=== PATIENT | female | born 1980 | race Caucasian/White ===

== ENCOUNTER 2018-05-19 21:35 | Emergency (ER) | payer OTHER, MEDICAID, SELFPAY ==
[2018-05-19 21:51] VITALS: BMI 24.2
--- NOTE | 2018-05-19 22:28 | DI.RAD.S_ITS ---
PROCEDURE: XR FINGER RT MIN 2V INDICATIONS: painful, swollen finger, puncture wound, FB? distal tip to digit 2 TECHNIQUE: AP hand, 2 views of the 2nd finger(s) acquired. COMPARISON: None. FINDINGS: Bones: No fractures or dislocations. No suspicious bony lesions. Soft tissues: No suspicious soft tissue calcifications. IMPRESSION: No opaque soft tissue foreign body. Dictated by: Jeremy Fragoso M.D. on 05/20/2018 at 9:32 Approved by: Jeremy Fragoso M.D. on 05/20/2018 at 9:34
[2018-05-19 23:00] VITALS: BP 130/87; PULSE 76
[2018-05-19] MEDS: TET,DIPH,PERTUSS(ACELL),VAC/PF 0.5 ML SYRINGE IM (23:00)
[2018-05-19] MEDS: DOXYCYCLINE HYCLATE 100 MG TABLET PO (23:00)
--- NOTE | 2018-05-19 23:07 | ED.WOUNDLAC ---
HPI - Wound/Laceration General Chief Complaint: Wound/Laceration Stated Complaint: STATES INFECTION TO POINTER FINGER ON RIGHT HAND Time Seen by Provider: 05/19/18 21:41 Source: patient and family Mode of arrival: ambulatory Limitations: no limitations History of Present Illness HPI narrative: Otherwise healthy 38-year-old female presents to the emergency department with a chief complaint of pain and swelling of her right index finger. Her and her father were out catching prawn a few days ago and the volar surface of her right index finger was punctured by the spine on a prawn. She developed some pain and swelling of the right index finger over the course of the next day. Today she soaked it in warm water with Epsom salts and it seemed to improve a bit. She denies systemic symptoms such as fever or chills. Onset (ago): day(s) Extremity Location: Right: hand Place: home Patient tetanus UTD: Yes Context: accidental Associated symptoms: pain and unable to move injured part Related Data Previous Rx's Medication Instructions Recorded doxycycline hyclate 100 mg PO BID #20 tab 05/19/18 Allergies Allergy/AdvReac Type Severity Reaction Status Date / Time latex [LATEX] Allergy Mild RASH Unverified 02/19/18 12:43 Review of Systems Review of Systems All systems reviewed & are unremarkable except as noted in HPI and below Constitutional Denies chills, Denies fever(s), Denies lethargy and Denies weakness Eyes Denies change in vision, Denies eye discharge, Denies irritation and Denies loss of vision ENT Ears, Nose, Mouth, and Throat: Denies change in voice, Denies neck pain and Denies sore throat Cardiovascular Denies chest pain, Denies irregular heart rhythm, Denies lightheadedness, Denies palpitations, Denies dyspnea, Denies dyspnea on exertion and Denies orthopnea Respiratory Denies cough, Denies dyspnea, Denies dyspnea on exertion and Denies wheezing Gastrointestinal Gastrointestinal: Denies abdominal pain, Denies change in bowel habits, Denies diarrhea, Denies nausea and Denies vomiting Genitourinary Denies hematuria, Denies flank pain, Denies urinary incontinence and Denies urinary urgency Musculoskeletal Reports joint swelling, Reports limited range of motion, Denies neck pain and Reports radiating pain into limb Integumentary/Breasts Denies pruritus, Denies erythema, Denies rash and Denies wounds Neurologic Denies confusion, Denies loss of vision and Denies weakness Psychiatric Denies anxiety, Denies confusion, Denies depression, Denies homicidal ideation and Denies suicidal ideation Endocrine Denies palpitations Hematologic/Lymphatic Denies easy bruising Allergic/Immunologic Denies wheezing PFSH Surgical History History of breast augmentation Family History Brother Neuroblastoma, unspecified laterality Father Age: 61 Sleep apnea, unspecified type Mother Age: 60 Diabetes mellitus Grandfather Diabetes mellitus Essential hypertension Exam Narrative Exam Narrative: Pleasant 38-year-old female in no obvious or significant distress Initial Vital Signs Initial Vital Signs: Vital Signs Pulse Rate 76 05/19/18 23:00 Blood Pressure 130/87 H 05/19/18 23:00 Const General: cooperative, well developed and No in distress Nutritional Appearance: average body habitus Orientation: alert, awake and oriented x3 HENMT Head: normal to inspection Nose: external nose normal Eyes General: appearance normal, both eyes and all related structures Eyelids: eyelids normal Conjunctivae: conjunctivae normal Sclera: sclerae normal Pupils: PERRL EOM: EOM intact bilaterally Resp Effort & Inspection: normal respiratory effort, able to speak in complete sentences, no respiratory distress and no use of accessory muscles Auscultation: clear to auscultation bilaterally, no rales, no rhonchi and no wheezes GI Inspection: non-distended Palpation: soft, no hepatosplenomegaly, No guarding, No pulsatile mass and No tender Auscultation: normal bowel sounds Extrem Right upper extremity: hand (Small puncture volar surface of right index finger with no palpable foreign body. No signs of flexor tenosynovitis such as significant swelling, finger stuck in flexion, pain with passive extension.) Course Orders Ordered: ED Orders 05/19/18 22:28 XR finger RT min 2V Stat Discontinued Medications Diphtheria/Tetanus/Acell Pertussis (Adacel) 0.5 ml IM .ONCE ONE Stop: 05/19/18 22:55 Last Admin: 05/19/18 23:00 Dose: 0.5 ml Doxycycline Hyclate (Vibramycin) 100 mg PO NOW ONE Stop: 05/19/18 22:30 Last Admin: 05/19/18 23:00 Dose: 100 mg Vital Signs - 8 hr 05/19/18 23:00 Pulse Rate 76 Blood Pressure [Right Arm] 130/87 H MDM - Wound/Laceration Differential Diagnosis Differential diagnosis: Likely laceration, abscess, abrasion and other (Flexor tenosynovitis) Medical Records Attestation: I reviewed the patient's medical records. Imaging Data Finger X-ray: Attestation: I personally reviewed and interpreted this imaging study as follows: My impression: No FB MDM Narrative Medical decision making narrative: Pain and swelling to index finger in absence of Kanavel's signs of flexor tenosynovitis, no FB on xray. Will treat for finger cellulitis, no abscess suspected. Doxycycline for staph, strep, MRSA, and vibrio coverage. Close follow up. Extensive discussion given regarding signs of concern such as increased swelling, pain, drainage, decreased ROM or systemic findings. Patient verbalized understanding Discharge Plan Departure Patient Disposition: Home, Self-Care Clinical Impression: Cellulitis of finger Instructions: DI for Cellulitis -- Adult Activity Restrictions/Additional Instructions: *You have been diagnosed with [ cellulitis of right index finger ] *What to do: *Take medications as directed *Follow up with your primary care provider in 2-3 days *Return to ER if you should have any new, worsening or concerning symptoms such as increased swelling of your index finger, increasing pain, and inability to straighten it or make a fist, Prescriptions: New doxycycline hyclate 100 mg tablet 100 mg PO BID Qty: 20 RF: 0 Referrals: Rudolph Guallpa MD [Primary Care Provider] -
== END 2018-05-19 23:10 | disposition home or self-care (01) ==
PROVIDERS: Emergency Provider Emergency Medicine; Family Provider Family Medicine; PCP Family Medicine
DX: L03.011 Cellulitis of right finger (principal); W26.8XXA Contact with other sharp object(s), not elsewhere classified, initial encounter
CPT/HCPCS: 73140; 90471; 99283; 90715

== ENCOUNTER 2018-06-08 10:06 | Emergency (ER) | payer OTHER, MEDICAID, SELFPAY ==
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
[2018-06-08 10:18] VITALS: BP 125/93; PULSE 82; RESP 18; TEMP 36.7; O2SAT 97
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
== END 2018-06-08 11:07 | disposition home or self-care (01) ==
PROVIDERS: Emergency Provider Emergency Medicine; Family Provider Family Medicine; PCP Family Medicine
DX: S92.502A Displaced unspecified fracture of left lesser toe(s), initial encounter for closed fracture (principal); W22.8XXA Striking against or struck by other objects, initial encounter
CPT/HCPCS: 73660; 99282; 99283

== ENCOUNTER → 2018-06-19 09:19 | Outpatient (CLI) | payer OTHER, MEDICAID, SELFPAY ==
--- NOTE | 2018-06-19 09:23 | DI.RAD.S_ITS ---
PROCEDURE: XR TOE LT MIN 2V INDICATIONS: F/u fx of toe on left foot TECHNIQUE: 3 views of the left toe(s) acquired. COMPARISON: [facility], CR, XR TOE LT MIN 2V, 06/08/2018, 9:56. FINDINGS: Bones: Spiral fracture midshaft of the fourth proximal phalanx is again noted, mild dorsal angulation, lateral displacement of the distal fracture fragment and mild overriding deformity unchanged. No callus formation seen. Soft tissues: No suspicious soft tissue densities. IMPRESSION: Stable fracture fourth proximal phalanx Dictated by: Jp Zapata M.D. on 06/19/2018 at 9:59 Approved by: Jp Zapata M.D. on 06/19/2018 at 10:01
== END ==
PROVIDERS: Family Provider Family Medicine; PCP Family Medicine; Visit Provider Family Medicine
DX: S92.512D Displaced fracture of proximal phalanx of left lesser toe(s), subsequent encounter for fracture with routine healing (principal)
CPT/HCPCS: 73660

== ENCOUNTER 2018-09-09 07:50 | Emergency (ER) | payer OTHER, MEDICAID, SELFPAY ==
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
[2018-09-09 08:19] VITALS: BP 152/100; PULSE 90; RESP 13; TEMP 36.6; O2SAT 97
[2018-09-09] MEDS: HYDROCODONE/ACET 5/325 TABLET 1 TAB PO (09:22)
[2018-09-09 10:00] VITALS: BP 151/110; PULSE 39; RESP 15; O2SAT 98
== END 2018-09-09 10:19 | disposition home or self-care (01) ==
PROVIDERS: Emergency Provider Emergency Medicine; PCP Family Medicine
DX: S43.004A Unspecified dislocation of right shoulder joint, initial encounter (principal); V86.55XA Driver of 3- or 4- wheeled all-terrain vehicle (ATV) injured in nontraffic accident, initial encounter
CPT/HCPCS: 73030; 99282; 99283

== ENCOUNTER 2019-01-25 08:20 | Emergency (ER) | payer OTHER, MEDICAID, SELFPAY ==
[2019-01-25 08:25] VITALS: BP 141/101; PULSE 96; RESP 17; TEMP 36.6; O2SAT 99
--- NOTE | 2019-01-25 09:25 | ED_ITS ---
HPI - Extremity Problem General Chief complaint: Extremity Problem,Nontraumatic Stated complaint: Rt elbow swollen and red Time Seen by Provider: 01/25/19 08:29 Source: patient Mode of arrival: ambulatory Limitations: no limitations History of Present Illness HPI Narrative: Patient presents the emergency department complaining of a red swollen right elbow since last night. She states she has had a feeling of fever and chills also. Patient states she initially noticed that the elbow was enlarged and swollen last night, this morning, noticed erythema. She states she can move the elbow but that it hurts to straighten it all the way. It also hurts to flex maximally. Patient denies any injury to the elbow. She denies any previous elbow issues. No other complaints at this time. Related Data Previous Rx's Medication Instructions Recorded hydrocodone-acetaminophen 1 tab PO Q4-6H PRN #10 tab 01/25/19 sulfamethoxazole-trimethoprim 1 tab PO BID #14 tab 01/25/19 [Bactrim DS] Allergies Allergy/AdvReac Type Severity Reaction Status Date / Time latex [LATEX] Allergy Mild RASH Unverified 12/09/18 10:43 Review of Systems Constitutional Denies chills, Denies fever(s), Denies lethargy and Denies weakness Eyes Denies change in vision, Denies eye discharge, Denies irritation and Denies loss of vision ENT Ears, Nose, Mouth, and Throat: Denies change in voice, Denies neck pain and Denies sore throat Cardiovascular Denies chest pain, Denies irregular heart rhythm, Denies lightheadedness, Denies palpitations, Denies dyspnea, Denies dyspnea on exertion and Denies orthopnea Respiratory Denies cough, Denies dyspnea, Denies dyspnea on exertion and Denies wheezing Gastrointestinal Gastrointestinal: Denies abdominal pain, Denies change in bowel habits, Denies diarrhea, Denies nausea and Denies vomiting Genitourinary Denies hematuria, Denies flank pain, Denies urinary incontinence and Denies urinary urgency Musculoskeletal Denies neck pain Comments: Swelling of right olecranon bursa Integumentary/Breasts Denies pruritus, Reports erythema, Denies rash and Denies wounds Neurologic Denies confusion, Denies loss of vision and Denies weakness Psychiatric Denies anxiety, Denies confusion, Denies depression, Denies homicidal ideation and Denies suicidal ideation Endocrine Denies palpitations Hematologic/Lymphatic Denies easy bruising Allergic/Immunologic Denies wheezing [facility] Medical History Healthy adult (Acute) Surgical History History of breast augmentation Family History Brother Neuroblastoma, unspecified laterality Father Age: 62 Sleep apnea, unspecified type Mother Age: 61 Diabetes mellitus Grandfather Diabetes mellitus Essential hypertension Social History marital status: Smoking Status: Never smoker alcohol intake: current substance use type: marijuana Family History Brother Neuroblastoma, unspecified laterality Father Age: 62 Sleep apnea, unspecified type Mother Age: 61 Diabetes mellitus Grandfather Diabetes mellitus Essential hypertension Social History marital status: Smoking Status: Never smoker alcohol intake: current substance use type: marijuana Exam Initial Vital Signs Initial Vital Signs: Vital Signs Temperature 97.8 F 01/25/19 08:25 Pulse Rate 96 H 01/25/19 08:25 Respiratory Rate 17 01/25/19 08:25 Blood Pressure 141/101 H 01/25/19 08:25 Pulse Oximetry 99 01/25/19 08:25 Const General: cooperative and well developed Nutritional Appearance: well nourished Orientation: alert, awake, oriented x3 and not confused [facility] Head: normocephalic and atraumatic Ears: external ears normal Nose: external nose normal and No nasal discharge Face and sinus: face symmetric and No dry mucous membranes Mouth: oral mucosae normal and moist mucous membranes Teeth and gingiva: dentition normal Eyes General: appearance normal, both eyes and all related structures Eyelids: eyelids normal Conjunctivae: conjunctivae normal Sclera: sclerae normal Pupils: PERRL EOM: EOM intact bilaterally Neck Neck: normal visual inspection, trachea midline, No lymphadenopathy, No midline deformity and No JVD Lymphatic: No lymphedema Chest Chest: normal inspection of the chest Resp Effort & Inspection: normal respiratory effort, able to speak in complete sentences, no respiratory distress and no use of accessory muscles Auscultation: clear to auscultation bilaterally Cardio Rate: regular rate Rhythm: regular rhythm Pulses: normal peripheral pulses Back/Spine/Pelvis Back: No CVA tenderness Cervical Spine: cervical ROM normal and No pain with cervical ROM Thoracic/Lumbar Spine: thoracic and lumbar spine normal to inspection Skin General: no rashes or lesions noted, No jaundice and No petechiae Other: Patient has a 4 cm diameter area of moderate erythema over her right olecranon area. There is fluctuance of the olecranon bursa. No wound or drainage. Neuro General: alert, oriented x3, gait normal and no focal motor deficits Speech: speech normal Extrem Other: Patient has nearly full range of motion of her right elbow, though this is mildly limited by pain and swelling at the olecranon. Her olecranon bursa is enlarged and fluctuant, and tender, though not exquisitely tender. Psych Appearance: well kempt Mental Status: mental status grossly normal Attitude: cooperative Thought Content: normal and suicidality Judgment: judgment good Procedures Abscess I/D Site: upper extremity Side (if applicable): right Local Anesthetic: lidocaine 2% Amount of anesthesia used (mL): 3 Technique: incised with #11 blade Amount of fluid expressed (mL): 2 Irrigation: Yes Packing used?: iodoform Course Course Narrative: I did not find evidence of a septic joint. I did discuss with the patient that it is possible that she has infection within the bursa itself, though it is difficult to tell without I and D. The patient may also have an olecranon bursitis that is noninfected, with an overlying cellulitis. We discussed the options and ultimately, the patient opted to have the bursa I and D in the emergency department. This was done, and no purulent drainage was noted. Patient is found have a small amount of clear fluid that drained from the wound. She was given a dose of Bactrim in the emergency department, as well as a dose of Vicodin. We have discussed home wound care, as well as the usual indications for return. Orders Ordered: Discontinued Medications Hydrocodone Bitart/Acetaminophen ([place] 10/325) 1 tab PO NOW ONE Stop: 01/25/19 09:19 Trimethoprim/Sulfamethoxazole (Bactrim Ds) 1 tab PO NOW ONE Stop: 01/25/19 09:19 Vital Signs - 8 hr 01/25/19 08:25 Temperature 97.8 F Pulse Rate 96 H Respiratory Rate 17 Blood Pressure 141/101 H Pulse Oximetry 99 MDM - Extremity (Nontraumatic) Medical Records Attestation: I reviewed the patient's medical records. Discharge Plan Departure Patient Disposition: Home Clinical Impression: Cellulitis of right elbow Bursitis, olecranon Qualifiers: Laterality: right Qualified Code(s): M70.21 - Olecranon bursitis, right elbow Discharge Date/Time: 01/25/19 09:50 Interventions: ED Discharge Assessment Last Done: 01/25/19 09:50 Instructions: DI for Cellulitis -- Adult, DI for Incision and Drainage of a Skin Abscess Prescriptions: New hydrocodone-acetaminophen 5-325 mg tablet 1 tab PO Q4-6H PRN (Reason: pain) Qty: 10 RF: 0 sulfamethoxazole-trimethoprim [Bactrim DS] 800-160 mg tablet 1 tab PO BID Qty: 14 RF: 0 Referrals: Rudolph Guallpa MD [Primary Care Provider] -
--- NOTE | 2019-01-25 10:19 | PC.NURSE ---
wound dressed with bacitracin, 2 - 4x4s and coban
== END 2019-01-25 09:50 | disposition home or self-care (01) ==
PROVIDERS: Emergency Provider Emergency Medicine; PCP Family Medicine
DX: L03.113 Cellulitis of right upper limb (principal); M70.20 Olecranon bursitis, unspecified elbow
CPT/HCPCS: 10060; 99282

== ENCOUNTER 2019-11-07 04:22 | Emergency (ER) | payer OTHER, MEDICAID, SELFPAY ==
[2019-11-07 04:25] VITALS: BP 140/99; PULSE 81; RESP 17; TEMP 36.6
--- NOTE | 2019-11-07 04:37 | ED.FEMALEGU ---
HPI - Female Genitourinary General Stated complaint: peeing blood 2 days Time Seen by Provider: 11/07/19 04:24 Source: patient Mode of arrival: Ambulatory Limitations: no limitations History of Present Illness HPI Narrative: 39-year-old female nonsmoker with noncontributory medical history presents with other family members in the chief complaint of 2 days of dysuria, frequency and urgency with a small amount of blood on the toilet paper when she wipes. She has had urinary tract infections in the past and states this feels the same. She denies systemic findings such as fever, chills nor nausea, vomiting or back pain. MD Complaint: dysuria and UTI Onset (ago): day(s) Location: suprapubic Severity: moderate Quality: Aching and Burning Duration: constant Exacerbating factors: urination Urinary symptoms: Dysuria, Frequency, Hematuria and Urgency Patient : No Related Data Previous Rx's Medication Instructions Recorded hydrocodone-acetaminophen 1 tab PO Q4-6H PRN #10 tab 01/25/19 sulfamethoxazole-trimethoprim 1 tab PO BID #14 tab 01/25/19 [Bactrim DS] cephalexin [Keflex] 500 mg PO QID 7 Days #28 cap 11/07/19 Allergies Allergy/AdvReac Type Severity Reaction Status Date / Time latex [LATEX] Allergy Mild RASH Unverified 12/09/18 10:43 Review of Systems Constitutional Constitutional: Denies chills, Denies fatigue, Denies fever(s), Denies frequent falls, Denies lethargy and Denies weakness Eyes Eyes: Denies change in vision, Denies eye discharge, Denies irritation and Denies loss of vision ENT Ears, Nose, Mouth, and Throat: Denies change in voice, Denies dizziness, Denies neck pain, Denies sore throat and Denies throat swelling Cardiovascular Cardiovascular: Denies chest pain, Denies irregular heart rhythm, Denies lightheadedness, Denies palpitations, Denies dyspnea, Denies dyspnea on exertion and Denies orthopnea Respiratory Respiratory: Denies cough, Denies dyspnea, Denies dyspnea on exertion and Denies wheezing Gastrointestinal Gastrointestinal: Denies abdominal pain, Denies change in bowel habits, Denies diarrhea, Denies nausea and Denies vomiting Genitourinary Genitourinary: Reports hematuria, Reports urinary frequency, Denies flank pain, Denies urinary incontinence and Reports urinary urgency Musculoskeletal Musculoskeletal: Denies back pain, Denies muscle weakness, Denies neck pain, Denies numbness and Denies tingling Integumentary/Breasts Skin/Breast: Denies pruritus, Denies erythema, Denies rash and Denies wounds Neurologic Neurologic: Denies behavioral changes, Denies confusion, Denies dizziness, Denies frequent falls, Denies loss of vision, Denies numbness, Denies tingling and Denies weakness Psychiatric Psychiatric: Denies anxiety, Denies behavioral changes, Denies confusion, Denies depression, Denies homicidal ideation and Denies suicidal ideation Endocrine Endocrine: Denies fatigue, Denies flushing and Denies palpitations Hematologic/Lymphatic Hematologic/Lymphatic: Denies easy bruising Allergic/Immunologic Allergic/Immunologic: Denies urticaria, Denies throat swelling and Denies wheezing Patient History Medical History Healthy adult (Acute) Surgical History History of breast augmentation Family History Brother Neuroblastoma, unspecified laterality Father Age: 62 Sleep apnea, unspecified type Mother Age: 61 Diabetes mellitus Grandfather Diabetes mellitus Essential hypertension alcohol intake frequency: 0-2 drinks per day Substance Use Type: marijuana Exam Narrative Exam Narrative: GEN: AOx3 and in mild distress EYES: Pupils are equal, round, and reactive to light and accommodation. Extraoccular muscles are intact bilaterally. There is no subconjunctival hemorrhage or exudate. CHEST: Lungs are clear to auscultation bilaterally and free of wheezes, rales, or rhonchi. Heart rate is regular rhythm, there are no murmurs, clicks, rubs, or gallops. There is no chest wall tenderness. ABD: Abdomen is soft and tender in the suprapubic region. There is no guarding or rebound. Bowel sounds are normal in all 4 quadrants. There is no mass or organomegaly. EXT: Full painless ROM of all extremities with no loss of sensation or strength. SKIN: Warm, pink, and dry. No erythema or rash Initial Vital Signs Initial Vital Signs: Vital Signs Temperature 97.8 F 11/07/19 04:25 Pulse Rate 81 11/07/19 04:25 Respiratory Rate 17 11/07/19 04:25 Blood Pressure 140/99 H 11/07/19 04:25 Course Orders Ordered: ED Orders 11/07/19 01:06 Test Urine Stat 11/07/19 04:45 Urinalysis and Microscopic Stat Discontinued Medications Cefazolin Sodium (Keflex 250 Mg Prepack) 1 bottle MISC SEEINSTR ONE Stop: 11/07/19 04:41 Vital Signs Vital signs: Vital Signs - 8 hr 11/07/19 04:25 Temperature 97.8 F Pulse Rate 81 Respiratory Rate 17 Blood Pressure [Left Arm] 140/99 H Discharge Plan Departure Patient Disposition: Home Clinical Impression: UTI (urinary tract infection) Qualifiers: Urinary tract infection type: acute cystitis Hematuria presence: with hematuria Qualified Code(s): N30.01 - Acute cystitis with hematuria Instructions: DI for Urinary Tract Infection (UTI) Activity Restrictions/Additional Instructions: *You have been diagnosed with [acute urinary tract infection with hematuria] *What to do: *Take medications as directed: *Follow up with your primary care provider in 2-3 days, call for an appointment. Let them know you were seen in the Emergency Department and that we ask that you be seen in follow up *Return to ER if you should have any new, worsening or concerning symptoms, such as fever, shaking chills, nausea, vomiting or diarrhea Prescriptions: New cephalexin [Keflex] 500 mg capsule 500 mg PO QID 7 Days Qty: 28 RF: 0 No Action hydrocodone-acetaminophen 5-325 mg tablet 1 tab PO Q4-6H PRN (Reason: pain) Qty: 10 RF: 0 sulfamethoxazole-trimethoprim [Bactrim DS] 800-160 mg tablet 1 tab PO BID Qty: 14 RF: 0 Referrals: Rudolph Guallpa MD [Primary Care Provider] -
[2019-11-07 04:45] VITALS: BP 140/99; PULSE 81; RESP 17; TEMP 36.6; BMI 25.0
[2019-11-07 04:46] LABS: Pregnancy Test Urine Negative (Negative)
[2019-11-07 04:54] LABS: Bacteria Urine None Seen
[2019-11-07] MEDS: cephALEXin 250 MG PREPACK 1 BOTTLE MISC (04:54)
[2019-11-07 04:55] LABS: Appearance Urine UA CLEAR; Bilirubin Urine UA NEGATIVE (NEGATIVE); Color Urine UA YELLOW; Glucose Urine UA NEGATIVE (Negative); Ketones Urine UA NEGATIVE (NEGATIVE); Leukocyte Esterase Urine UA 2+ (NEGATIVE); Nitrite Urine UA NEGATIVE (Negative); Occult Blood Urine UA 3+ (Negative); Protein Urine UA NEGATIVE (Negative); Specific Gravity Urine UA <=1.005 (1.000-1.035); Urobilinogen Urine UA 0.2 E.U./dL (0.2)
[2019-11-07 05:15] LABS: Culture Indicated Urine Specimen Cultured; RBC Urine 1-5/HPF (0-5/HPF); Squamous Epithelial Cell Urine 1-5 /HPF (0-5/HPF); WBC Urine 10-30/HPF (0-5/HPF)
== END 2019-11-07 05:02 | disposition home or self-care (01) ==
PROVIDERS: Emergency Provider Emergency Medicine; PCP Family Medicine
DX: N30.01 Acute cystitis with hematuria (principal)
CPT/HCPCS: 81001; 81025; 87077; 87086; 87186; 99282

== ENCOUNTER 2022-02-05 10:01 | Emergency (ER) | payer OTHER, MEDICAID, SELFPAY ==
--- NOTE | 2022-02-05 10:04 | DI.RAD.S_ITS ---
PROCEDURE: XR FINGER LT MIN 2V INDICATIONS: finger injury TECHNIQUE: AP hand, 2 views of the 4th finger(s) acquired. COMPARISON: None. FINDINGS: Bones: No fractures or dislocations. No suspicious bony lesions. Soft tissues: No suspicious soft tissue calcifications. IMPRESSION: No acute osseous abnormality. Consider follow-up radiographs in 10-14 days. Dictated by: John Best M.D. on 02/05/2022 at 11:04 Approved by: John Best M.D. on 02/05/2022 at 11:05
[2022-02-05 10:08] VITALS: BP 154/94; PULSE 87; RESP 18; TEMP 36.4; O2SAT 97; BMI 33.3
--- NOTE | 2022-02-05 10:42 | ED.GENADULT ---
HPI - General Adult General Chief complaint: Extremity Injury, Upper Stated complaint: Possible broken ring finger Time Seen by Provider: 02/05/22 10:04 Source: patient Mode of arrival: Ambulatory History of Present Illness HPI narrative: Patient is a 42-year-old female here for evaluation of a left ring finger injury. She is unsure exactly how it happened however she stated that she did get drunk last night. She woke up overnight and this morning with pain in the finger. She describes the pain over the 1st joint of her finger. No other injuries. She did have a aluminum splint at home that she placed over the area which does seem to help the discomfort. Related Data Previous Rx's Medication Instructions Recorded hydrocodone 5 mg-acetaminophen 325 1 tab PO Q4-6H PRN #10 tab 01/25/19 mg tablet albuterol sulfate 2.5 mg (3 mL) INHALATION QID #75 ml 01/19/20 albuterol sulfate 90 mcg/actuation 2 puff INHALATION Q6H PRN #8.5 gram 01/19/20 aerosol inhaler nitroglycerin 2 % transdermal 1 inch TRANSDERMAL TID #30 g 08/01/21 ointment (Nitro-Bid) polyethylene glycol 3350 17 17 g PO BID #510 g 08/01/21 gram/dose oral powder Allergies Allergy/AdvReac Type Severity Reaction Status Date / Time latex [LATEX] Allergy Mild RASH Verified 02/05/22 10:11 Review of Systems Musculoskeletal Musculoskeletal: Reports system reviewed and no additional complaints, except as documented and Reports as per HPI Integumentary/Breasts Skin/Breast: Reports system reviewed and no additional complaints, except as documented and Reports as per HPI Neurologic Neurologic: Reports system reviewed and no additional complaints, except as documented and Reports as per HPI Hematologic/Lymphatic On Anticoagulants: No Patient History Medical History (Updated 02/05/22 @ 10:46 by Charli Crook DO) Healthy adult Surgical History History of breast augmentation Family History Brother Neuroblastoma, unspecified laterality Father Age: 65 Sleep apnea, unspecified type Mother Age: 64 Diabetes mellitus Grandfather Diabetes mellitus Essential hypertension Social History marital status: Smoking Status: Never smoker alcohol intake: current substance use type: marijuana Smoking Status: Never smoker alcohol intake frequency: 0-2 drinks per day Substance Use Type: marijuana Exam Initial Vital Signs Initial Vital Signs: Vital Signs Temperature 97.5 F L 02/05/22 10:08 Pulse Rate 87 02/05/22 10:08 Respiratory Rate 18 02/05/22 10:08 Blood Pressure 154/94 H 02/05/22 10:08 Pulse Oximetry 97 02/05/22 10:08 Cardio Pulses: radial pulses present on the left Skin General: no rashes or lesions noted Neuro Sensory Exam: no sensory deficits noted Extrem Other: Left hand is unremarkable. The left ring finger MCP joint is unremarkable. Does have tenderness over the PIP joint and mild tenderness over the D IP joint of the left ring finger. No other left hand or finger injuries found. Procedures Orthopedic Splinting/Casting Injury #1: Side: left Upper Extremity Injury Location: finger Upper Extremity Immobilizer: aluminum form splint Post splinting neuro exam: intact Post splinting vascular exam: intact Placed by: Provider Course Orders Ordered: ED Orders 02/05/22 10:04 XR finger LT min 2V Stat Vital Signs Vital signs: Vital Signs - 8 hr 02/05/22 10:08 Temperature 97.5 F L Pulse Rate 87 Respiratory Rate 18 Blood Pressure 154/94 H Pulse Oximetry 97 Medical Decision Making Imaging Data Extremity x-ray #1: My Impression: Lucency along the distal aspect of the proximal phalanx. MDM Narrative Medical decision making narrative: My evaluation of the x-ray shows concern for lucency along the distal aspect of the proximal phalanx. Patient has an aluminum splint already in this was replaced. I did discuss this with her. Discussed care instructions and return precautions. She expressed understanding and agreement. Discharge Plan Departure Patient Disposition: Home Clinical Impression: Finger fracture, left Instructions: DI for Finger Fracture Activity Restrictions/Additional Instructions: The x-ray did has some concern about a finger fracture like we discussed. I recommend that you wear the splint like we discussed although you can take it off to shower. I suspect that her symptoms should be improving in the next couple weeks. Return to the emergency department for any new or worsening symptoms. Prescriptions: No Action albuterol sulfate 90 mcg/actuation HFA aerosol inhaler 2 puff INHALATION Q6H PRN (Reason: shortness of breath or wheezing) Qty: 8.5 1RF albuterol sulfate 2.5 mg /3 mL (0.083 %) solution for nebulization 2.5 mg INHALATION QID Qty: 75 0RF polyethylene glycol 3350 17 gram/dose powder 17 g PO BID Qty: 510 0RF Nitro-Bid 2 % ointment 1 inch transdermal TID Qty: 30 0RF Rx Instructions: apply small amount topically to rectal area tid hydrocodone-acetaminophen 5-325 mg tablet 1 tab PO Q4-6H PRN (Reason: pain) Qty: 10 0RF Referrals: Rudolph Guallpa MD [Primary Care Provider] -
[2022-02-05 11:41] VITALS: BP 155/102; PULSE 75; RESP 16; O2SAT 97
== END 2022-02-05 11:42 | disposition home or self-care (01) ==
PROVIDERS: Emergency Provider Emergency Medicine; PCP Family Medicine
DX: S62.635A Displaced fracture of distal phalanx of left ring finger, initial encounter for closed fracture (principal); X58.XXXA Exposure to other specified factors, initial encounter
CPT/HCPCS: 29130; 73140; 99281; 99283

== ENCOUNTER → 2022-07-19 08:51 | Outpatient (CLI) | payer OTHER, MEDICAID, SELFPAY ==
[2022-07-19 09:18] LABS: Add Manual Diff / Slide Review NO; Basophils Absolute Auto 0 /uL (0-100); Basophils Percent Auto 0.4 % (0-2); Eosinophils Absolute Auto 100 /uL (0-450); Eosinophils Percent Auto 0.8 % (2-4); Hematocrit 40.6 % (36-46); Hemoglobin 13.9 g/dL (12.0-16.0); Lymphocytes Absolute Auto 2200 /uL (1100-4500); Lymphocytes Percent Auto 28.1 % (25-40); Mean Corpuscular HGB Conc 34.1 % (30-36); Mean Corpuscular Hemoglobin 30.5 PG (26-34); Mean Corpuscular Volume 89.2 fL (80-100); Monocytes Absolute Auto 400 /uL (0-900); Monocytes Percent Auto 5.4 % (3-14); Neutrophils Absolute Auto 5100 /uL (1500-7000); Neutrophils Percent Auto 65.3 % (50-75); Platelet Count 200 X10^3/uL (150-400); Red Blood Cell Count 4.55 X10^6/uL (4.0-5.2); Red Cell Distribution Width 13.5 % (11.6-14.8); White Blood Cell Count 7.7 X10^3/uL (4.5-11.0)
[2022-07-19 10:42] LABS: HEMOLYSIS < 15 (0-50); Iron 101 ug/dL (37-170)
[2022-07-19 10:49] LABS: Alanine Aminotransferase 26 IU/L (<35); Albumin 4.5 g/dL (3.5-5.0); Albumin Globulin Ratio 1.7 (1.0-2.8); Alkaline Phosphatase 73 U/L (38-126); Aspartate Aminotransferase 22 IU/L (14-36); BUN Creatinine Ratio 17.7 (6-22); Bilirubin Total 0.5 mg/dL (0.2-1.3); Blood Urea Nitrogen 11 mg/dL (7-17); Calcium 9.2 mg/dL (8.4-10.2); Carbon Dioxide 29 mmol/L (22-32); Chloride 99 mmol/L (98-107); Cholesterol 247 mg/dL (140-199); Estimated Glomerular Filt Rate > 60 mL/min (>60); Globulin 2.7 g/dL (1.7-4.1); Glucose 91 mg/dL (70-100); HDL Cholesterol 53 mg/dL (40-60); HEMOLYSIS < 15 (0-50); LDL Cholesterol Calculated 133 mg/dL (<100); Potassium 4.3 mmol/L (3.4-5.1); Sodium 137 mmol/L (137-145); Total Protein 7.2 g/dL (6.3-8.2); Triglycerides 307 mg/dL (35-150)
[2022-07-19 10:55] LABS: Percent Iron Saturation 28 % (15-50); Total Iron Binding Capacity 362 ug/dL (265-497); Transferrin 275 mg/dL (206-381)
[2022-07-19 11:17] LABS: TSH w/ Reflex to FT4 0.81 uIU/mL (0.47-4.68)
[2022-07-19 11:19] LABS: Ferritin 14 ng/mL (6-137)
== END ==
PROVIDERS: PCP Family Medicine; Referring Provider Physician Assistant; Visit Provider Physician Assistant
DX: R53.83 Other fatigue (principal); Z86.2 Personal history of diseases of the blood and blood-forming organs and certain disorders involving the immune mechanism; Z13.220 Encounter for screening for lipoid disorders; Z13.6 Encounter for screening for cardiovascular disorders
CPT/HCPCS: 36415; 80053; 80061; 82728; 83540; 83550; 84443; 85025

== ENCOUNTER 2023-01-14 08:36 | Emergency (ER) | payer OTHER, MEDICAID, SELFPAY ==
[2023-01-14 08:49] VITALS: BP 142/93; PULSE 78; RESP 19; TEMP 37.2; O2SAT 98; BMI 30.7
--- NOTE | 2023-01-14 08:53 | DI.RAD.S_ITS ---
PROCEDURE: XR FOOT RT MIN 3V INDICATIONS: right foot pain TECHNIQUE: 3 views of the foot were acquired. COMPARISON: None. FINDINGS: Bones: No fractures or dislocations. No suspicious bony lesions. Soft tissues: No tibiotalar joint effusion. Achilles tendon appears normal. IMPRESSION: No visualized acute fracture or dislocation. However, if clinical concern and/or pain persist, short interval imaging followup in 7-10 days is recommended, as occult injury cannot be definitively excluded. Dictated by: Ileana Ruiz M.D. on 01/14/2023 at 9:19 Approved by: Ileana Ruiz M.D. on 01/14/2023 at 9:19
[2023-01-14 08:54] VITALS: PULSE 78
--- NOTE | 2023-01-14 10:02 | ED.LOWEXIN ---
HPI - Extremity Injury (Lower) General Chief Complaint: Extremity Injury, Lower Stated Complaint: thinks she broke RT foot Time Seen by Provider: 01/14/23 10:01 Source: patient Mode of arrival: Ambulatory Limitations: no limitations History of Present Illness HPI Narrative: This is a 43-year-old female who presents with concern for injury to her right foot. Patient states she is been having issues on the dorsal side of her right foot over the 4th 5th metatarsal region for some time. 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 Today she had jumped out bed accidentally jumped into a laundry basket that slid and caused her to invert her ankle and had pain at that area that was increased. She is able to ambulate on it. It is improved when she wears shoes that have more support and are not tight her foot. She states sometimes it feels little burning at the sensation. Was worse today so she was concerned she may have broken it. Patient denies any other injuries. Denies any other concerns. She is not taken anything for pain. Related Data Previous Rx's Medication Instructions Recorded albuterol sulfate 2.5 mg/3 mL 2.5 mg (3 mL) inhalation QID #75 mL 01/19/20 (0.083 %) solution for nebulization albuterol sulfate 90 mcg/actuation 2 puff inhalation Q6H PRN 01/19/20 aerosol inhaler shortness of breath or wheezing #8.5 grams Allergies Allergy/AdvReac Type Severity Reaction Status Date / Time latex [LATEX] Allergy Mild RASH Verified 02/05/22 10:11 Review of Systems Review of Systems ROS Unobtainable: All systems reviewed & are unremarkable except as noted in HPI and below Patient History Medical History Healthy adult Mixed hyperlipidemia Surgical History History of breast augmentation Family History Brother Neuroblastoma, unspecified laterality Father Age: 66 Sleep apnea, unspecified type Mother Age: 65 Diabetes mellitus Grandfather Diabetes mellitus Essential hypertension Social History marital status: Smoking Status: Never smoker alcohol intake: current substance use type: marijuana Smoking Status: Never smoker alcohol intake frequency: 0-2 drinks per day Substance Use Type: marijuana Exam Narrative Exam Narrative: GENERAL: Alert and oriented x three, well-appearing female in mild distress. HEENT: Head normocephalic, atraumatic, EOMI, pupils reactive, face symmetric, moist mucous membranes NECK: Supple, full range of motion EXTREMITIES: Normal range of motion, no clubbing or edema. Neurovascularly intact. No bony tenderness over the right foot, ankle. No joint laxity. Patient does not have any warmth, erythema, ecchymosis or skin changes. No masses or nodules appreciated. Patient has normal range of motion. She is nontender in the soft tissues as well. NEUROLOGICAL: Cranial nerves II through XII grossly intact. Moving all extremities SKIN: Warm, dry, no petechiae, no rashes or lesions. Initial Vital Signs Initial Vital Signs: Vital Signs Temperature 99 F 01/14/23 08:49 Pulse Rate 78 01/14/23 08:49 Respiratory Rate 19 01/14/23 08:49 Blood Pressure 142/93 H 01/14/23 08:49 Pulse Oximetry 98 01/14/23 08:49 Oxygen Delivery Method Room Air 01/14/23 08:49 Course Orders Ordered: ED Orders 01/14/23 08:53 XR foot RT min 3V Stat Vital Signs Vital signs: Vital Signs - 8 hr 01/14/23 08:49 01/14/23 08:54 Temperature 99 F Pulse Rate 78 Pulse Rate [Right Dorsalis Pedis] 78 Respiratory Rate 19 Blood Pressure 142/93 H Pulse Oximetry 98 Oxygen Delivery Method Room Air MDM - Extremity Injury (Lower) Imaging Data Extremity x-ray #1: Radiologist's Impression: Close Foot X-Ray (Signed) Ileana Ruiz - 01/14/23 Finger X-Ray (Signed) John Best - 02/05/22 Shoulder X-Ray (Signed) Luigi Murray - 09/09/18 Toe X-Ray (Signed) Jp Zapata - 06/19/18 Toe X-Ray (Signed) Daisy Vo - 06/08/18 Finger X-Ray (Signed) Derek Fragoso - 05/19/18 Launch?[address] [address] XRay Report Signed Patient: Lizeth Ortiz MR#: [id number] : 1980 Acct:[id number] Age/Sex: 43 / F Date of Service: 01/14/23 Loc: ED Accession Number: [id number] ?? Procedure: XR foot RT min 3V Ordering Provider: Lorene Lepe D.O. PROCEDURE:? XR FOOT RT MIN 3V ? INDICATIONS:? right foot pain ? TECHNIQUE:? 3 views of the foot were acquired.? ? COMPARISON:? None. ? FINDINGS:? ? Bones:? No fractures or dislocations.? No suspicious bony lesions.? ? Soft tissues:? No tibiotalar joint effusion.? Achilles tendon appears normal.? ? ? IMPRESSION:? No visualized acute fracture or dislocation. However, if clinical concern and/or pain persist, short interval imaging followup in 7-10 days is recommended, as occult injury cannot be definitively excluded. ? ? Dictated by: Ileana Ruiz M.D. on 01/14/2023 at 9:19 ? ? Approved by: Ileana Ruiz M.D. on 01/14/2023 at 9:19?? MDM Narrative Medical decision making narrative: Discussed with patient she is had longstanding pain this area that was worsened today after low energy mechanism injury. Patient suspect may have a tendon or ligament issue discussed supportive foot wear and follow-up. She and I also discussed potential causes signs and symptoms to watch for. X-ray imaging was obtained is negative today for any bony injury. Patient feels comfortable with this plan. Discharge Plan Departure Patient Disposition: Home Clinical Impression: Foot pain, right Instructions: DI for Foot Pain Activity Restrictions/Additional Instructions: Please follow-up in 7-10 days if your pain is persisting for repeat evaluation and possibly imaging if you are not having any improvement or your symptoms are worsening. I would try very hard soled shoe to see if this makes any difference there maybe less flexion and movement at that area. You may take Tylenol and/or ibuprofen as needed for pain Splint Care: Keep splint clean and dry. Elevated affected body part to decrease swelling. OK to use ice pack on the affected body part. Use for 15-20 minutes each time, for 5-6x per day. If you develop worsening pain, numbness, tingling, discoloration of the affected body part, loosen the splint by loosening the ALEXSANDRA wrap, and either see your doctor for an urgent re-assessment, or return to the Emergency Department. Return to the Emergency Department for any new or worsening symptoms. Prescriptions: No Action albuterol sulfate 90 mcg/actuation HFA aerosol inhaler 2 puff INHALATION Q6H PRN (Reason: shortness of breath or wheezing) Qty: 8.5 1RF albuterol sulfate 2.5 mg /3 mL (0.083 %) solution for nebulization 2.5 mg INHALATION QID Qty: 75 0RF Referrals: Rudolph Guallpa MD [Primary Care Provider] - Stand Alone Forms: Patient Portal/API
[2023-01-14 10:23] VITALS: BP 151/98; PULSE 75; RESP 17; O2SAT 97
== END 2023-01-14 10:24 | disposition home or self-care (01) ==
PROVIDERS: Emergency Provider Emergency Medicine; PCP Family Medicine
DX: M79.671 Pain in right foot (principal); X50.1XXA Overexertion from prolonged static or awkward postures, initial encounter
CPT/HCPCS: 73630; 99281; 99283

== ENCOUNTER → 2023-02-01 09:01 | Outpatient (CLI) | payer OTHER, MEDICAID, SELFPAY ==
[2023-02-01 11:03] LABS: BUN Creatinine Ratio 14.1 (6-22); Blood Urea Nitrogen 9 mg/dL (7-17); Calcium 9.6 mg/dL (8.4-10.2); Carbon Dioxide 29 mmol/L (22-32); Chloride 103 mmol/L (98-107); Cholesterol 291 mg/dL (140-199); Estimated Glomerular Filt Rate > 60 mL/min (>60); Glucose 89 mg/dL (70-100); HDL Cholesterol 49 mg/dL (40-60); HEMOLYSIS < 15 (0-50); LDL Cholesterol Calculated 209 mg/dL (<100); Sodium 139 mmol/L (137-145); Triglycerides 166 mg/dL (35-150)
[2023-02-01 11:04] LABS: Hemoglobin A1C% w Est Avg Glu 5.5 % (4.0-6.0)
[2023-02-01 13:36] LABS: Microalbumin Urine Random 1.7 mg/dL (0-1.6)
[2023-02-01 16:56] LABS: Creatinine Urine Random 376.8 mg/dL; Microalbumi Creatinin Ratio Ur 4.5 ug/mg CR (<30)
== END ==
PROVIDERS: PCP Family Medicine; Referring Provider Physician Assistant; Visit Provider Physician Assistant
DX: E78.2 Mixed hyperlipidemia (principal); I10 Essential (primary) hypertension; Z83.3 Family history of diabetes mellitus
CPT/HCPCS: 36415; 80048; 80061; 82043; 82570; 83036

== ENCOUNTER 2023-06-09 19:56 | Emergency (ER) | payer OTHER, MEDICAID, SELFPAY ==
[2023-06-09 20:00] VITALS: BP 156/104; PULSE 91; RESP 16; TEMP 36.9; O2SAT 98; BMI 26.6
[2023-06-09 20:46] LABS: Appearance Urine UA CLOUDY; Bilirubin Urine UA NEGATIVE (NEGATIVE); Color Urine UA RED; Glucose Urine UA NEGATIVE (Negative); Ketones Urine UA NEGATIVE (NEGATIVE); Leukocyte Esterase Urine UA TRACE (NEGATIVE); Nitrite Urine UA NEGATIVE (Negative); Occult Blood Urine UA 3+ (Negative); Protein Urine UA 2+ (Negative); Urobilinogen Urine UA 0.2 E.U./dL (0.2)
[2023-06-09 20:51] LABS: Bacteria Urine None Seen; Culture Indicated Urine Cult Not Indicated; RBC Urine 30-100/HPF (0-5/HPF); Squamous Epithelial Cell Urine 0-1 /HPF (0-5/HPF); WBC Urine 1-5/HPF (0-5/HPF)
== END 2023-06-09 22:47 | disposition left against medical advice (07) ==
PROVIDERS: Emergency Provider Emergency Medicine; PCP Family Medicine
DX: N39.0 Urinary tract infection, site not specified (principal)
CPT/HCPCS: 81001; 81025; 99281

== ENCOUNTER 2023-06-10 06:23 | Emergency (ER) | payer OTHER, MEDICAID, SELFPAY ==
[2023-06-10 06:41] VITALS: BP 154/96; PULSE 77; RESP 18; TEMP 36.2; O2SAT 100; BMI 26.6
--- NOTE | 2023-06-10 06:45 | ED.FEMALEGU ---
HPI - Female Genitourinary General Chief complaint: Urogenital-Female Stated complaint: blood in urine T-3 lower back hurts Time Seen by Provider: 06/10/23 06:32 Source: patient, RN notes reviewed and old records reviewed Mode of arrival: Ambulatory Limitations: no limitations History of Present Illness HPI Narrative: 43-year-old female with prior history of UTIs and pyelonephritis who presents with complaint of dysuria, urgency frequency hematuria she is had blood or urine states a little bit tachy your than typical. She does have little bit of bilateral flank pain. She denies fevers or chills. No nausea or vomiting. No chest pain or shortness of breath. She denies any diarrhea or constipation. No vaginal bleeding or discharge. She states but is just when she urinates. Patient states she is been on orally back sometimes for 3 days sometimes for 1 or 2 weeks. She denies any prior history resistance. Patient was here last night she left without being seen had a UA as well as which showed no but changes consistent with infection. Patient has not taken any azo. She denies any daily prescriptions. No prior surgeries. No known drug allergies. No tobacco, alcohol or illicit drugs. Patient follows through [facility]. Related Data Previous Rx's Medication Instructions Recorded sulfamethoxazole 800 1 tab PO BID #14 tabs 06/10/23 mg-trimethoprim 160 mg tablet (Bactrim DS) Allergies Allergy/AdvReac Type Severity Reaction Status Date / Time latex [LATEX] Allergy Mild RASH Verified 06/09/23 20:05 Review of Systems Review of Systems ROS Unobtainable: All systems reviewed & are unremarkable except as noted in HPI and below Patient History Medical History Essential hypertension Healthy adult Mixed hyperlipidemia Surgical History History of breast augmentation Family History Brother Neuroblastoma, unspecified laterality Father Age: 66 Sleep apnea, unspecified type Mother Age: 65 Diabetes mellitus Grandfather Diabetes mellitus Essential hypertension alcohol intake frequency: 0-2 drinks per day Substance Use Type: marijuana Exam Narrative Exam Narrative: GENERAL: Alert and oriented x three, well-appearing female in mild distress. HEENT: Head normocephalic, atraumatic, EOMI, pupils reactive, face symmetric, moist mucous membranes NECK: Supple, full range of motion CARDIOVASCULAR: Regular rate and rhythm without murmurs, rubs or gallops. RESPIRATORY: Breath sounds equal bilaterally, no wheezes rales or rhonchi. ABDOMEN: Soft, nontender. Normoactive bowel sounds all 4 quadrants. No guarding or rebound, rigidity, no mass : Mild b/l CVA tenderness EXTREMITIES: Normal range of motion, no clubbing or edema. Neurovascularly intact NEUROLOGICAL: Cranial nerves II through XII grossly intact. Moving all extremities SKIN: Warm, dry, no petechiae, no rashes or lesions. MDM - Female Genitourinary MDM Narrative Medical decision making narrative: A 43-year-old female nontoxic appearing with complaint of dysuria, urgency and frequency bilateral flank pain, she is been afebrile without any nausea or vomiting history of recurrent UTIs. Patient's urine shows hematuria, urine is negative. Symptoms seem consistent with UTI/pyelonephritis as she is had bilateral flank pain and not one-sided and patient was started on oral antibiotic. Patient was given a dose of Pyridium for bladder spasm. Patient had left CBC last night but had a UA that showed 2+ protein, 3+ occult blood, trace leukocyte esterase, 30-100 RBCs, 1-5 wbc's, no bacteria. Point of care at that time was negative. This was at 8:12 p.m. on 06/09/2023 so patient felt appropriate to not have to give a 2nd urine sample this morning less than 12 hours later. Discharge Plan Departure Patient Disposition: Home Clinical Impression: Pyelonephritis Instructions: DI for Kidney Infection Activity Restrictions/Additional Instructions: Please follow up with your physician if you are not improving in the next 1-2 days. Take antibiotics until completed. You may take azo every 6-8 hours as needed for bladder spasm. Prescription sent to [facility]. Please return for fevers, rapidly worsening abdominal back or flank pain, vomiting, difficulty or inability urinate or other new or concerning changes. Prescriptions: New sulfamethoxazole-trimethoprim [Bactrim DS] 800-160 mg tablet 1 tab PO BID Qty: 14 0RF Referrals: Rudolph Guallpa MD [Primary Care Provider] - Stand Alone Forms: Patient Portal/API
[2023-06-10] MEDS: PHENAZOPYRIDINE 100 MG TABLET 200 MG PO (06:56)
[2023-06-10] MEDS: TRIMETH/SULFA 160/800 (DS) TABLET 1 TAB PO (06:56)
== END 2023-06-10 07:09 | disposition home or self-care (01) ==
PROVIDERS: Emergency Provider Emergency Medicine; PCP Family Medicine
DX: N12 Tubulo-interstitial nephritis, not specified as acute or chronic (principal)
CPT/HCPCS: 99283

== ENCOUNTER 2024-11-16 18:01 | Emergency (ER) | payer MEDICAID, SELFPAY ==
[2024-11-16] VITALS (11 sets, daily range): BP systolic 132–153; BP diastolic 90–101; PULSE 97–113; RESP 14–31; TEMP 37; O2SAT 94–98; BMI 25.0
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
[2024-11-16] MEDS: LACTATED RINGERS 1,000 ML 1000 ML IV (18:58)
[2024-11-16 19:07] LABS: Add Manual Diff / Slide Review NO; Basophils Absolute Auto 0 /uL (0-100); Basophils Percent Auto 0.3 % (0-2); Eosinophils Absolute Auto 0 /uL (0-450); Eosinophils Percent Auto 0.6 % (2-4); Hematocrit 42.8 % (36-46); Hemoglobin 14.5 g/dL (12.0-16.0); Lymphocytes Absolute Auto 2000 /uL (1100-4500); Mean Corpuscular HGB Conc 33.8 % (30-36); Mean Corpuscular Hemoglobin 30.9 PG (26-34); Mean Corpuscular Volume 91.3 fL (80-100); Monocytes Absolute Auto 300 /uL (0-900); Monocytes Percent Auto 4.8 % (3-14); Neutrophils Absolute Auto 4400 /uL (1500-7000); Neutrophils Percent Auto 65.3 % (50-75); Platelet Count 213 X10^3/uL (150-400); Red Blood Cell Count 4.69 X10^6/uL (4.0-5.2); Red Cell Distribution Width 13.6 % (11.6-14.8); White Blood Cell Count 6.8 X10^3/uL (4.5-11.0)
[2024-11-16 19:12] LABS: INR 0.9 (0.9-1.3); Prothrombin Time 9.9 SECONDS (9.4-12.5)
[2024-11-16 19:15] LABS: PTT Partial Thromboplastin Tim 28 SECONDS (25.1-36.5)
[2024-11-16 19:19] LABS: Lactate (Lactic Acid) 2.9 mmol/L (0.7-2.1)
[2024-11-16] MEDS: THIAMINE 100 MG in SODIUM CHLORIDE 0.9% 100 ML 404 MG IV (19:20)
[2024-11-16 19:21] LABS: Alanine Aminotransferase 21 IU/L (<35); Albumin Globulin Ratio 1.9 (1.0-2.8); Alkaline Phosphatase 59 U/L (38-126); Aspartate Aminotransferase 28 IU/L (14-36); BUN Creatinine Ratio 19.4 (6-22); Bilirubin Total 0.3 mg/dL (0.2-1.3); Blood Urea Nitrogen 12 mg/dL (7-17); Calcium 9.7 mg/dL (8.4-10.2); Carbon Dioxide 21 mmol/L (22-32); Chloride 105 mmol/L (98-107); Estimated Glomerular Filt Rate > 60 mL/min (>60); Ethanol (ETOH) 180 mg/dL; Globulin 2.7 g/dL (1.7-4.1); Glucose 132 mg/dL (70-100); HEMOLYSIS < 15 (0-50); Potassium 3.2 mmol/L (3.4-5.1); Sodium 142 mmol/L (137-145); Total Protein 7.7 g/dL (6.3-8.2)
[2024-11-16] MEDS: FLUORESCEIN 1 MG STRIP EYE-BOTH (19:21)
[2024-11-16] MEDS: ACETAMINOPHEN 325 MG TABLET 650 MG PO (19:21)
[2024-11-16] MEDS: PROPARACAINE 0.5% OPHTH SOL 1 DROPS EYE-BOTH (19:21)
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
[2024-11-16 19:56] LABS: Appearance Urine UA CLEAR; Bilirubin Urine UA NEGATIVE (NEGATIVE); Color Urine UA YELLOW; Glucose Urine UA NEGATIVE (Negative); Ketones Urine UA NEGATIVE (NEGATIVE); Leukocyte Esterase Urine UA NEGATIVE (NEGATIVE); Nitrite Urine UA NEGATIVE (Negative); Occult Blood Urine UA NEGATIVE (Negative); Protein Urine UA NEGATIVE (Negative); Specific Gravity Urine UA <=1.005 (1.000-1.035); Urobilinogen Urine UA 0.2 E.U./dL (0.2)
[2024-11-16 20:05] LABS: UR Morphine/Opiate cutoff 300 Negative (Negative); Ur Creatinine Normal (Normal); Ur Specific Gravity Normal (Normal); Urine Amphetamines Negative (Negative); Urine Barbiturates Negative (Negative); Urine Benzodiazepines Negative (Negative); Urine Cocaine Negative (Negative); Urine MDMA Negative (Negative); Urine Methadone Negative (Negative); Urine Methamphetamines Negative (Negative); Urine Oxycodone Negative (Negative); Urine Phencyclidine Negative (Negative); Urine Tetrahydrocannabinol Positive (Negative); Urine Tricyclic Antidepressant Negative (Negative); Urine pH Normal (Normal)
[2024-11-16 20:08] LABS: Bacteria Urine None Seen; Culture Indicated Urine Cult Not Indicated; RBC Urine None Seen (0-5/HPF); Squamous Epithelial Cell Urine None Seen (0-5/HPF); Urine Volume 10mL (spun); WBC Urine None Seen (0-5/HPF)
[2024-11-16 20:37] LABS: Reflexed Lactate in 2 Hours Y
--- NOTE | 2024-11-16 21:21 | PC.NURSE ---
This RN sees patient walk out and leave. This RN catches up to patient and talks to patient, gives education on why it is important to stay and encourages her to stay and continue evaluation and treatment. Pt wishes to leave against medical advice and continues walking. She states she took out her own IV. Auntie states it was put in the sharps container. Will not show nurse if IV is gone. Keeps walking out into the parking lot. fence installer Mariana notified.
== END 2024-11-16 21:18 | disposition left against medical advice (07) ==
PROVIDERS: Emergency Provider Emergency Medicine; PCP Family Medicine
DX: T20.09XA Burn of unspecified degree of multiple sites of head, face, and neck, initial encounter (principal); E87.6 Hypokalemia; F10.129 Alcohol abuse with intoxication, unspecified; Y90.6 Blood alcohol level of 120-199 mg/100 ml; X12.XXXA Contact with other hot fluids, initial encounter; Z53.29 Procedure and treatment not carried out because of patient's decision for other reasons
CPT/HCPCS: 80053; 80305; 80320; 81001; 83605; 83735; 85025; 85610; 85730; 96361; 96365; 99284

== ENCOUNTER → 2025-02-01 09:52 | Outpatient (CLI) | payer OTHER, SELFPAY ==
--- NOTE | 2025-02-01 09:53 | DI.RAD.S_ITS ---
PROCEDURE: XR CERVICAL SPINE 2V OR 3V INDICATIONS: neck back pain TECHNIQUE: 3 view(s) of the cervical spine were acquired. COMPARISON: None. FINDINGS: Bones: Slight loss of normal cervical curvature. No fractures or dislocations to the T1 level. The lateral masses of C1 appear intact on the odontoid view. No suspicious bony lesions. Soft tissues: No prevertebral soft tissue swelling. IMPRESSION: No displaced fracture or traumatic subluxation. Dictated by: Elías Min M.D. on 02/02/2025 at 3:29 Approved by: Elías Min M.D. on 02/02/2025 at 3:29
--- NOTE | 2025-02-01 09:53 | DI.RAD.S_ITS ---
PROCEDURE: XR THORACIC SPINE 3V INDICATIONS: neck back pain TECHNIQUE: 3 views of the thoracic spine were acquired. COMPARISON: None. FINDINGS: Bones: No fractures or dislocations. No suspicious bony lesions. 12 pairs of ribs are noted, and appear intact where visualized. Soft tissues: No paravertebral stripe thickening. IMPRESSION: No acute bony abnormality. Dictated by: Elías Min M.D. on 02/02/2025 at 3:30 Approved by: Elías Min M.D. on 02/02/2025 at 3:30
[2025-02-01 10:50] LABS: Hemoglobin A1C% w Est Avg Glu 4.8 % (4.0-6.0)
[2025-02-01 11:11] LABS: Alanine Aminotransferase 20 IU/L (<35); Alkaline Phosphatase 63 U/L (38-126); Aspartate Aminotransferase 24 IU/L (14-36); Bilirubin Total 0.7 mg/dL (0.2-1.3); Blood Urea Nitrogen 13 mg/dL (7-17); Carbon Dioxide 25 mmol/L (22-32); Chloride 101 mmol/L (98-107); Cholesterol 273 mg/dL (140-199); Estimated Glomerular Filt Rate > 60 mL/min (>60); Globulin 2.5 g/dL (1.7-4.1); Glucose 95 mg/dL (70-100); HEMOLYSIS < 15 (0-50); Potassium 4.3 mmol/L (3.4-5.1); Sodium 135 mmol/L (137-145); Total Protein 7.5 g/dL (6.3-8.2); Triglycerides 131 mg/dL (35-150)
[2025-02-01 11:18] LABS: HDL Cholesterol 110 mg/dL (40-60); LDL Cholesterol Calculated 137 mg/dL (<100)
[2025-02-01 11:37] LABS: TSH w/ Reflex to FT4 1.51 uIU/mL (0.47-4.68)
== END ==
PROVIDERS: PCP Family Medicine; Referring Provider Family Medicine; Visit Provider Family Medicine
DX: M50.90 Cervical disc disorder, unspecified, unspecified cervical region (principal); I10 Essential (primary) hypertension; E78.2 Mixed hyperlipidemia
CPT/HCPCS: 36415; 72040; 72072; 80053; 80061; 83036; 84443

== ENCOUNTER 2025-02-09 14:11 | Emergency (ER) | payer OTHER, SELFPAY ==
[2025-02-09 14:19] VITALS: BP 128/79; PULSE 75; RESP 16; TEMP 36.9; O2SAT 99; BMI 26.6
--- NOTE | 2025-02-09 14:36 | EKG_ITS ---
[facility] [address] [place] [address] Test Date: 2025-02-09 Pat Name: Lizeth Ortiz Department: [facility] Room: Gender: Female [employer]orer [employer]: : 1980 Requested By: Order Number: [id number] Reading MD: Emmett Rodríguez Measurements Intervals [place] Rate: 75 P: 56 MA: 142 QRS: 74 QRSD: 80 T: 61 QT: 378 QTc: 422 Interpretive Statements Normal sinus rhythm Electronically Signed On 02-10-2025 18:42:42 PDT by Emmett Rodríguez
[2025-02-09 14:56] LABS: Add Manual Diff / Slide Review NO; Basophils Absolute Auto 0 /uL (0-100); Basophils Percent Auto 0.9 % (0-2); Eosinophils Absolute Auto 0 /uL (0-450); Eosinophils Percent Auto 0.9 % (2-4); Hemoglobin 13.3 g/dL (12.0-16.0); Lymphocytes Absolute Auto 1500 /uL (1100-4500); Lymphocytes Percent Auto 29.9 % (25-40); Mean Corpuscular HGB Conc 34.1 % (30-36); Mean Corpuscular Hemoglobin 31.8 PG (26-34); Mean Corpuscular Volume 93.2 fL (80-100); Monocytes Absolute Auto 300 /uL (0-900); Monocytes Percent Auto 5.8 % (3-14); Neutrophils Absolute Auto 3100 /uL (1500-7000); Neutrophils Percent Auto 62.5 % (50-75); Platelet Count 210 X10^3/uL (150-400); Red Blood Cell Count 4.19 X10^6/uL (4.0-5.2); Red Cell Distribution Width 13.9 % (11.6-14.8); White Blood Cell Count 4.9 X10^3/uL (4.5-11.0)
[2025-02-09 15:04] LABS: INR 0.9 (0.9-1.3); Prothrombin Time 10.5 SECONDS (9.4-12.5)
[2025-02-09 15:07] LABS: PTT Partial Thromboplastin Tim 30 SECONDS (25.1-36.5)
[2025-02-09 15:10] LABS: Alanine Aminotransferase 17 IU/L (<35); Albumin 4.4 g/dL (3.5-5.0); Albumin Globulin Ratio 1.8 (1.0-2.8); Alkaline Phosphatase 49 U/L (38-126); Aspartate Aminotransferase 27 IU/L (14-36); BUN Creatinine Ratio 14.9 (6-22); Bilirubin Total 0.5 mg/dL (0.2-1.3); Blood Urea Nitrogen 13 mg/dL (7-17); Carbon Dioxide 25 mmol/L (22-32); Chloride 104 mmol/L (98-107); Creatine Kinase 85 U/L (30-135); Estimated Glomerular Filt Rate > 60 mL/min (>60); Globulin 2.4 g/dL (1.7-4.1); Glucose 89 mg/dL (70-100); HEMOLYSIS < 15 (0-50); Lipase 32 U/L (23-300); Magnesium 1.9 mg/dL (1.6-2.3); Potassium 3.6 mmol/L (3.4-5.1); Sodium 139 mmol/L (137-145); Total Protein 6.8 g/dL (6.3-8.2)
[2025-02-09 15:22] LABS: NT-proBNP (BNP-Adult 18+) 195 pg/mL (<125); Troponin I < 0.012 ng/mL (0.01-0.034)
--- NOTE | 2025-02-09 15:55 | ED.SYNCOPE ---
HPI - Syncope General Chief Complaint: Syncope Stated Complaint: Fainted Saturday , right hand feels numb Time Seen by Provider: 02/09/25 15:14 Source: patient Mode of arrival: Ambulatory Limitations: no limitations History of Present Illness HPI narrative: 45-year-old female with past medical history hypertension, hyperlipidemia, cervical neck pain with disc disease presents to the ED status post 1 episode of syncope that occurred 4 days prior to arrival. Patient states that she was in a restaurant, waiting for her food to arrive when she felt some prodromal symptoms including sweatiness, dizziness, after which she fainted In her chair. She was out for a brief time, no more than 20 seconds. Patient states that she has been feeling fine since then. No chest pain, shortness of breath, fever, chills, nausea, vomiting. this morning patient experienced a few sporadic instances of right hand numbness and tingling. Patient specifically points to the 4th and 5th digits of her right hand. Patient does have a history of cervical neck pain with disc disease as well as carpal tunnel syndrome. In the ED, patient is symptom free. Patient called her PCP Dr. Guallpa who was concerned about the syncopal episode and advised her to come to the ED for further workup. Related Data Home Medications Medication Instructions Recorded Confirmed No Known Home Medications 06/08/24 12/10/24 Allergies Allergy/AdvReac Type Severity Reaction Status Date / Time latex [LATEX] Allergy Mild RASH Verified 12/10/24 09:21 Review of Systems Constitutional Constitutional: Denies chills, Denies fatigue, Denies fever(s), Denies frequent falls, Denies lethargy and Denies weakness Eyes Eyes: Denies change in vision, Denies eye discharge, Denies irritation and Denies loss of vision ENT Ears, Nose, Mouth, and Throat: Denies change in voice, Denies dizziness, Denies neck pain, Denies sore throat and Denies throat swelling Cardiovascular Cardiovascular: Denies chest pain, Reports syncope, Denies irregular heart rhythm, Denies lightheadedness, Denies palpitations, Denies dyspnea, Denies dyspnea on exertion and Denies orthopnea Respiratory Respiratory: Denies cough, Denies dyspnea, Denies dyspnea on exertion and Denies wheezing Gastrointestinal Gastrointestinal: Denies abdominal pain, Denies change in bowel habits, Denies diarrhea, Denies nausea and Denies vomiting Musculoskeletal Musculoskeletal: Denies neck pain, Reports numbness and Reports tingling Integumentary/Breasts Skin/Breast: Denies pruritus, Denies erythema, Denies rash and Denies wounds Neurologic Neurologic: Denies behavioral changes, Denies confusion, Denies dizziness, Reports syncope, Denies frequent falls, Denies loss of vision, Reports numbness, Reports tingling and Denies weakness Comments: sporadic numbness, tingling of digits 4,5 of the right hand Psychiatric Psychiatric: Denies anxiety, Denies behavioral changes, Denies confusion, Denies depression, Denies homicidal ideation and Denies suicidal ideation Endocrine Endocrine: Denies fatigue, Denies flushing and Denies palpitations Hematologic/Lymphatic Hematologic/Lymphatic: Denies easy bruising Allergic/Immunologic Allergic/Immunologic: Denies urticaria, Denies throat swelling and Denies wheezing Patient History Medical History Essential hypertension Mixed hyperlipidemia Healthy adult Surgical History History of breast augmentation Family History Brother Neuroblastoma, unspecified laterality Father Age: 68 Sleep apnea, unspecified type Mother Age: 67 Diabetes mellitus Grandfather Diabetes mellitus Essential hypertension Social History marital status: alcohol intake: current substance use type: marijuana alcohol intake frequency: 0-2 drinks per day Exam Narrative Exam Narrative: Const General:?cooperative, healthy appearing and comfortable [facility] Head:?normal to inspection Ears:?hearing grossly normal bilaterally Nose:?external nose normal Face and sinus:?normal facial exam and sinuses nontender Mouth:?oral mucosae normal Throat:?posterior oropharynx normal Eyes General:?appearance normal, both eyes and all related structures Neck Neck:?normal visual inspection and no lymphadenopathy noted Resp Effort & Inspection:?normal respiratory effort Auscultation:?clear to auscultation bilaterally Cardio Rate:?regular rate Rhythm:?regular rhythm Musculoskeletal No swelling, erythema, tenderness to palpation of the right wrist, hand. Full range of motion. Strength and sensation intact. Neurovascularly intact. Neuro General:?patient alert, patient awake and patient oriented x3 Initial Vital Signs Initial Vital Signs: Vital Signs Temperature 98.4 F 02/09/25 14:19 Pulse Rate 75 02/09/25 14:19 Respiratory Rate 16 02/09/25 14:19 Blood Pressure 128/79 02/09/25 14:19 Pulse Oximetry 99 02/09/25 14:19 Oxygen Delivery Method Room Air 02/09/25 14:19 Course Orders Ordered: ED Orders 02/09/25 14:25 EKG-12 Lead Stat 02/09/25 14:45 Complete Blood Count AUTO DIFF Stat Comprehensive Metabolic Panel Stat Lipase Stat Magnesium Stat NT-proBNP (BNP-Adult 18+) Stat PTT Partial Thromboplastin [place] Stat Prothrombin Time INR Stat Troponin & CK Cardiac Panel Stat Vital Signs Vital signs: Vital Signs - 8 hr 02/09/25 14:19 02/09/25 15:56 Temperature 98.4 F Pulse Rate 75 80 Respiratory Rate 16 18 Blood Pressure 128/79 143/87 H Pulse Oximetry 99 99 Oxygen Delivery Method Room Air Room Air MDM - Syncope Lab Data 02/09/25 14:45 02/09/25 14:45 Labs: Lab Results 02/09/25 Range/Units 14:45 WBC 4.9 (4.5-11.0) X10^3/uL RBC 4.19 (4.0-5.2) X10^6/uL Hgb 13.3 (12.0-16.0) g/dL Hct 39.0 (36-46) % MCV 93.2 (80-100) fL MCH 31.8 (26-34) PG MCHC 34.1 (30-36) % RDW 13.9 (11.6-14.8) % Plt Count 210 (150-400) X10^3/uL Neut % (Auto) 62.5 (50-75) % Lymph % (Auto) 29.9 (25-40) % Prentiss % (Auto) 5.8 (3-14) % Eos % (Auto) 0.9 L (2-4) % Baso % (Auto) 0.9 (0-2) % Neut # (Auto) 3100 (6922-0101) /uL Lymph # (Auto) 1500 (1117-5009) /uL Prentiss # (Auto) 300 (0-900) /uL Eos # (Auto) 0 (0-450) /uL Baso # (Auto) 0 (0-100) /uL PT 10.5 (9.4-12.5) SECONDS INR 0.9 (0.9-1.3) APTT 30 (25.1-36.5) SECONDS Sodium 139 (137-145) mmol/L Potassium 3.6 (3.4-5.1) mmol/L Chloride 104 (98-107) mmol/L Carbon Dioxide 25 (22-32) mmol/L BUN 13 (7-17) mg/dL Creatinine 0.87 (0.52-1.04) mg/dL Estimated GFR > 60 (>60) mL/min BUN/Creatinine Ratio 14.9 (6-22) Glucose 89 (70-100) mg/dL Calcium 9.0 (8.4-10.2) mg/dL Magnesium 1.9 (1.6-2.3) mg/dL Total Bilirubin 0.5 (0.2-1.3) mg/dL AST 27 (14-36) IU/L ALT 17 (<35) IU/L Alkaline Phosphatase 49 (38-126) U/L Total Creatine Kinase 85 (30-135) U/L Troponin I < 0.012 (0.01-0.034) ng/mL NT-Pro-B Natriuret Pep 195 H (<125) pg/mL Total Protein 6.8 (6.3-8.2) g/dL Albumin 4.4 (3.5-5.0) g/dL Globulin 2.4 (1.7-4.1) g/dL Albumin/Globulin Ratio 1.8 (1.0-2.8) Lipase 32 (23-300) U/L [facility] Narrative Medical decision making narrative: 45-year-old female with past medical history hypertension, hyperlipidemia, cervical neck pain with disc disease presents to the ED status post 1 episode of syncope that occurred 4 days prior to arrival. Based on history and physical exam, patient's symptoms are most consistent with vasovagal syncope. ACS workup was obtained which was within normal limits. EKG is normal sinus rhythm with no acute ST-T changes. No axis deviation. BNP and troponin within normal limits. All other labs are within normal limits. In the ED, patient is symptom free. Patient has tingling and numbness of the right hand most consistent with carpal tunnel syndrome versus cervical radiculopathy. Patient agrees to follow-up with Dr. Guallpa regarding these symptoms. ED return precautions were discussed with patient. Patient verbalized understanding. Medical records reviewed: Yes Discharge Plan Departure Patient Disposition: Home Clinical Impression: Syncope Qualifiers: Syncope type: unspecified Qualified Code(s): R55 - Syncope and collapse Instructions: DI for Syncope in Adults (Fainting) Activity Restrictions/Additional Instructions: you were evaluated in the ED today for an episode of fainting. Your cardiac workup was normal today. It appears that you had vasovagal syncope which is benign. The tingling in your right hand is likely due to carpal tunnel syndrome. Please follow-up with your PCP Dr. Guallpa for further evaluation and treatment. return to the ED if you have worsening symptoms. Prescriptions: No Action No Known Home Medications Referrals: Rudolph Guallpa MD [Primary Care Provider] - Stand Alone Forms: Patient Portal/API/Survey
[2025-02-09 15:56] VITALS: BP 143/87; PULSE 80; RESP 18; O2SAT 99
== END 2025-02-09 16:16 | disposition home or self-care (01) ==
PROVIDERS: Family Medicine; Emergency Provider Student in an Organized Health Care Education/Training Program; PCP Family Medicine
DX: R55 Syncope and collapse (principal); R07.9 Chest pain, unspecified
CPT/HCPCS: 36415; 80053; 82550; 83690; 83735; 83880; 84484; 85025; 85610; 85730; 93005; 99283; 99284